=== PATIENT | female | born 2000 | race Two or more races ===

== ENCOUNTER 2024-01-26 10:35 | Emergency (ER) | payer MEDICAID ==
[~2024-01-26] VITALS: Ht 167.6 cm; Wt 56.7 kg
[2024-01-26] MEDS ORDERED: ONDANSETRON HCL/PF 4 MG/2 ML VIAL ONE ×2 (11:46→21:33)
[2024-01-26] MEDS ORDERED: KETOROLAC TROMETHAMINE 15 MG/ML VIAL ONE (11:46)
[2024-01-26] MEDS: KETOROLAC TROMETHAMINE 15 MG/ML VIAL IV ONE (11:58)
[2024-01-26] MEDS: IV NS 0.9% 1,000 ML BAG IV ONE (11:58)
[2024-01-26] MEDS: ONDANSETRON HCL/PF 4 MG/2 ML VIAL IVP ONE (11:58)
[2024-01-26 12:27] LABS: APPEARANCE,URINE CLEAR (CLEAR); BILIRUBIN,URINE 1+ (NEGATIVE); BLOOD, URINE TRACE-INTA Ery/uL (NEGATIVE); COLOR,URINE DARK YELLOW (YELLOW); PH,URINE 5.5 (5.0-8.0); PREGNANCY TEST URINE QUAL NEGATIVE (NEGATIVE); PROTEIN,URINE 1+ mg/dl (NEGATIVE); UGLUCOSE TRACE mg/dL (NEGATIVE)
[2024-01-26 12:28] LABS: ADD URINE CULTURE YES; BACTERIA,URINE Few /HPF (None Seen); KETONES,URINE NEGATIVE (NEGATIVE); LEUKOCYTE ESTERASE ,URINE NEGATIVE (NEGATIVE); NITRITE, URINE POSITIVE (NEGATIVE); SQUAMOUS EPITHELIAL CELL,UR Few /HPF (None Seen)
[2024-01-26 12:29] LABS: CALCIUM, SERUM 9.3 mg/dL (8.5-10.1); CREATININE 0.8 mg/dL (0.6-1.3); POTASSIUM 4.1 mmol/L (3.5-5.1)
[2024-01-26 12:37] LABS: BASOPHILS % (AUTO) 0.5 % (0.0-2.0); EOSINOPHILS # (AUTO) 0.1 K/uL (0.0-0.7); EOSINOPHILS % (AUTO) 1.2 % (0.0-6.0); HEMATOCRIT 40 % (33-45); HEMOGLOBIN 13.1 g/dL (11.5-14.8); LYMPHOCYTES # (AUTO) 1.4 K/uL (0.8-4.8); LYMPHOCYTES % (AUTO) 23.6 % (20.0-44.0); MEAN CORPUSCULAR HEMOGLOBIN 29 PG (26.0-33.0); MEAN CORPUSCULAR HGB CONC 33 g/dl (31.0-36.0); MEAN CORPUSCULAR VOLUME 86 fL (82-100); MONOCYTES # (AUTO) 0.4 K/uL (0.1-1.30); MONOCYTES % (AUTO) 6.6 % (2.0-12.0); NEUTROPHILS % (AUTO) 68.1 % (43.0-81.0); PLATELET COUNT (AUTO) 385 K/uL (150-450); RED BLOOD CELL COUNT(AUTO) 4.61 MIL/uL (4.0-5.2); RED CELL DISTRIBUTION WIDTH 13.1 % (11.5-15.0); WHITE BLOOD COUNT (AUTO) 5.9 K/uL (4.3-11.0)
[2024-01-26] MEDS ORDERED: SULF1TAB48 PO (13:24)
[2024-01-26 13:34] VITALS: BP 119/84; TEMP 98; O2SAT 99
[2024-01-26] MEDS ORDERED: MORPHINE SULFATE INJ 2 MG/ML DISP.SYRIN ONE (21:33)
[2024-01-27] MEDS ORDERED: OXYC-128 PO (00:17)
[2024-01-27] MEDS ORDERED: IBUP-1955 PO (00:17)
[2024-01-27] MEDS ORDERED: TAMS-12 PO (00:17)
[2024-01-27] MEDS ORDERED: ACET-2605 PO (00:17)
== END 2024-01-26 13:35 | disposition home or self-care (01) ==
LOC: ER 10:57
DX: N39.0 Urinary tract infection, site not specified (principal); R11.0 Nausea
CPT/HCPCS: 99285; 96374; 76770; 96361; 96375; 85025; 80048; 87086; 84703; 81001; 36415; J2405 ×2; J7030; J2270; J1885

== ENCOUNTER 2024-01-26 19:16 | Emergency (ER) | payer MEDICAID ==
[~2024-01-26] VITALS: Ht 167.6 cm; Wt 59.0 kg
[~2024-01-26 19:16] MED LIST: SULF1TAB48 PO
[2024-01-26] MEDS: MORPHINE SULFATE INJ 2 MG/ML DISP.SYRIN IV ONE (21:34)
[2024-01-26] MEDS: ONDANSETRON HCL/PF 4 MG/2 ML VIAL IVP ONE (21:34)
[2024-01-26] MEDS: IV NS 0.9% 500 ML BAG IV ONE (21:34)
[2024-01-26] MEDS ORDERED: IOHEXOL-300 100 ML VIAL IV ONE (22:21)
[2024-01-26] MEDS ORDERED: IV NS 0.9% 250 ML IV ONE (22:21)
[2024-01-27 00:13] VITALS: BP 115/90; TEMP 98; O2SAT 99
[2024-01-27] MEDS ORDERED: IBUP-1955 PO (00:17)
[2024-01-27] MEDS ORDERED: TAMS-12 PO (00:17)
[2024-01-27] MEDS ORDERED: OXYC-128 PO (00:17)
[2024-01-27] MEDS ORDERED: ACET-2605 PO (00:17)
== END 2024-01-27 00:29 | disposition home or self-care (01) ==
LOC: ER 19:18
DX: N20.0 Calculus of kidney (principal)
CPT/HCPCS: 99285; 74177; 96374; 96375; J2405; J7050; J7040; J2270; Q9967